=== PATIENT | female | born 1970 | race Native Hawaiian/Other Pacific Islander ===

== ENCOUNTER 2017-09-14 10:27 | Emergency (ER) | payer OTHER ==
[~2017-09-14] VITALS: Ht 165.1 cm; Wt 127.0 kg
[2017-09-14 10:30] VITALS: BP 152/66; TEMP 97.8
== END 2017-09-14 11:18 | disposition home or self-care (01) ==
LOC: ED 10:27
DX: M25.562 Pain in left knee (principal)
CPT/HCPCS: 99281